=== PATIENT | female | born 1960 | race Caucasian/White ===

== ENCOUNTER 2022-03-30 06:18 | Day surgery (SDC) | payer OTHER, SELFPAY ==
[2022-03-24 10:55] VITALS: BMI 29.7
--- NOTE | 2022-03-29 10:19 | P.CONAN_ITS ---
Documented by User: Kate Adrian NP 03/29/22 10:20 HPI - Anesthesia Eval Consult details Narrative: 61yo F for Colonoscopy [facility] Past Medical History Medical History (Updated 03/24/22 @ 10:53 by Mary Glasgow RN) Anxiety and depression Asthma Elevated cholesterol GERD (gastroesophageal reflux disease) HTN (hypertension) On beta alexey at home Surgical History Surgical History (Updated 03/24/22 @ 10:57 by Mary Glasgow RN) H/O colonoscopy History of endometrial ablation Hx of anterior cruciate ligament surgery Hx of rotator cuff surgery Social History Social History Patient Tobacco Use Status: Former Tobacco user Quit Date: 1984 Use of substances other than those prescribed or required for medical reasons: No Are you DNR?: No Advance Directives: No Advance Directives Information Provided: Yes Meds Allergies Allergy/AdvReac Type Severity Reaction Status Date / Time shellfish derived Allergy Unknown Unknown Verified 03/24/22 10:53 Home Medications Medication Instructions Recorded Confirmed Last Taken Type amlodipine 10 mg tablet 10 mg PO DAILY 03/24/22 03/24/22 03/30/22 History bupropion HCl 150 mg 24 hr tablet, 150 mg PO QAM 03/24/22 03/24/22 03/30/22 Hist ory extended release hydrochlorothiazide 25 mg tablet 25 mg PO DAILY 03/24/22 03/24/22 Unknown History omeprazole 20 mg capsule,delayed 40 mg PO BID 03/24/22 03/24/22 Unknown History release simvastatin 10 mg tablet 10 mg PO BEDTIME 03/24/22 03/24/22 Unknown History Exam Exam Date and Time: March 29, 2022 1019 Height,Weight and Vital Signs: Height 5 ft 3 in Weight 76.204 kg Assessment and Plan Assessment Anesthesia Assessment: Chart Reviewed Documented by User: Jayjay Lauren MD 03/30/22 16:42 [facility] Past Medical History Medical History (Updated 03/24/22 @ 10:53 by Mary Glasgow RN) Anxiety and depression Asthma Elevated cholesterol GERD (gastroesophageal reflux disease) HTN (hypertension) On beta alexey at home Functional capacity: independent ambulation Family History Family history of problems with anesthesia: No Surgical History Surgical History (Updated 03/24/22 @ 10:57 by Mary Glasgow RN) H/O colonoscopy History of endometrial ablation Hx of anterior cruciate ligament surgery Hx of rotator cuff surgery History of Problems with Anesthesia: No Social History Social History Patient Tobacco Use Status: Former Tobacco user Quit Date: 1984 Use of substances other than those prescribed or required for medical reasons: No Are you DNR?: No Advance Directives: No Advance Directives Information Provided: Yes Meds Allergies Allergy/AdvReac Type Severity Reaction Status Date / Time shellfish derived Allergy Unknown Unknown Verified 03/24/22 10:53 Home Medications Medication Instructions Recorded Confirmed Last Taken Type amlodipine 10 mg tablet 10 mg PO DAILY 03/24/22 03/24/22 03/30/22 History bupropion HCl 150 mg 24 hr tablet, 150 mg PO QAM 03/24/22 03/24/22 03/30/22 History extended release hydrochlorothiazide 25 mg tablet 25 mg PO DAILY 03/24/22 03/24/22 Unknown History omeprazole 20 mg capsule,delayed 40 mg PO BID 03/24/22 03/24/22 Unknown History release simvastatin 10 mg tablet 10 mg PO BEDTIME 03/24/22 03/24/22 Unknown History Exam Airway Mallampati Class: III TM Dist: >3cm Neck ROM: Full Loose/Missing/Broken Teeth: Yes (Chipped teeth , poor dentition ) Heart: S1,S2 Lungs: b/l breath sounds Assessment and Plan Assessment Anesthesia Assessment: Anesthesia Plan Discussed Final Anesthetic Review Family History of Problems with Anesthesia: No History of Problems with Anesthesia: No ASA Class: II Final Preanesthetic Review: Meds/Allgs Chart Reviewed, Consent Obtained/Reviewed and Anes Risks/Benef Reviewed Patient Risk: Intermediate Procedure Risk: Intermediate Anesthetic Plan Anesthetic Plan: MAC: Disposition: Standard PACU
[2022-03-30 06:41] VITALS: BP 136/80; PULSE 86; RESP 18; TEMP 36.6; O2SAT 97
[2022-03-30] MEDS: Lactated Ringers 1,000 ML 100 ML IVCONT (06:51)
--- NOTE | 2022-03-30 07:28 | MHC.SHP ---
Pre-Procedural Eval Section A Date of Service: 03/30/22 Section B Chief Complaint: screening,hx of polyps Details of Present Illness: SEE h&p NO CHANGES Relevant Family History (Specify if Yes): No Relevant Social History: None Present Medications: see Short Stay Collaborative assessment Medical History: No relevant PMH History of Previous Operations: No relevant previous surgery Allergies: Allergies Allergy/AdvReac Type Severity Reaction Status Date / Time shellfish derived Allergy Unknown Unknown Verified 03/24/22 10:53 Review of Systems Sugical H&P ROS: Negative: Constitution, Cardiovascular, Respiratory, Neurological, Psychiatric, Hem-Onc, Allergic/Immunologic, Gastrointestinal, Genitourinary, Musculoskeletal, Integumentary, Endocrine and Eyes/Ears/Nose/Throat Exam Surgical H&P Exam: Normal: HEENT, Normal: Heart, Normal: Lungs, Normal: Extremities, Normal: Abdomen, Normal: Skin and Normal: Neurological Plan Diagnosis/Plan: Unchanged I have reviewed the history and physical and performed a pertinent physical examination on my patient. No changes have occurred unless specified.
--- NOTE | 2022-03-30 08:01 | PM.OP ---
Brief Operative Note Date of Service: 03/30/22 Pre-op diagnosis: screening Post-op diagnosis: same (colon polyp) Procedure: colonoscopy Surgeon: Regis Emerson Anesthesia: MAC Was an Information Systems Security Developer used for this Procedure?: No Estimated blood loss (mL): 0 Pathology: other Condition: stable Disposition: PACU
[2022-03-30 08:04] VITALS: BP 106/69; PULSE 83; RESP 16; TEMP 36.6; O2SAT 98
[2022-03-30 08:19] VITALS: BP 120/80; PULSE 87; RESP 18; TEMP 36.6; O2SAT 96
--- NOTE | 2022-03-30 19:37 | OP_ITS ---
SURGEON: Regis Emerson MD INDICATIONS: Colon cancer screening and prior history of colon polyps. PREOPERATIVE DIAGNOSIS: POSTOPERATIVE DIAGNOSIS: PROCEDURE PERFORMED: Colonoscopy to the terminal ileum with snare polypectomy. ESTIMATED BLOOD LOSS: COMPLICATIONS: ANESTHESIA: ASSISTANTS: SPECIMENS: MEDICATIONS: Monitored anesthesia care. DESCRIPTION OF PROCEDURE: A history and physical was performed. The risks and benefits of the procedure were explained to the patient. Informed consent was obtained. The patient was placed in the left lateral decubitus position. A digital rectal exam was performed and was found to be normal. The Olympus pediatric video colonoscope was introduced into the rectum and advanced to the cecum without difficulty. The cecum was identified by transillumination, palpation, and identification of ileocecal valve. Examination was performed. The scope was removed. She tolerated the procedure well and was taken to recovery in stable condition. FINDINGS: The terminal ileum was examined and appeared normal. There was a single diverticulum about 5 cm from the ileocecal valve. The visualized colonic mucosa was normal. The quality of the prep was good. At the hepatic flexure, there was an 8-mm polyp, which was removed with a hot snare and recovered via suction. No other polyps were identified. There was moderate sigmoid diverticulosis with scattered diverticula throughout the remainder of the colon. Retroflexed examination did show some small internal hemorrhoids and some hypertrophic anal papillae. IMPRESSION: Colon polyp. RECOMMENDATIONS: Follow up the biopsy results. MD LINWOOD Bahena/PERLA / [id number]
== END 2022-03-30 09:09 | disposition home or self-care (01) ==
PROVIDERS: PCP Internal Medicine; Visit Provider Internal Medicine Gastroenterology
PROC: 0DJD8ZZ Inspection of Lower Intestinal Tract, Via Natural or Artificial Opening Endoscopic (ICD-10-PCS; CPT 45378; principal; 2022-03-30 07:30)
DX: Z12.11 Encounter for screening for malignant neoplasm of colon (principal); Z86.010 Personal history of colon polyps; D12.3 Benign neoplasm of transverse colon; K57.30 Diverticulosis of large intestine without perforation or abscess without bleeding; K64.8 Other hemorrhoids; K62.89 Other specified diseases of anus and rectum; K21.9 Gastro-esophageal reflux disease without esophagitis; E78.00 Pure hypercholesterolemia, unspecified; J45.909 Unspecified asthma, uncomplicated; F41.8 Other specified anxiety disorders; I10 Essential (primary) hypertension; Z79.899 Other long term (current) drug therapy; Z87.891 Personal history of nicotine dependence
CPT/HCPCS: 45385; 88305

== ENCOUNTER → 2023-03-25 07:41 | Day surgery (SDC) | payer OTHER, SELFPAY ==
--- NOTE | 2023-03-24 11:37 | HO.ANESPROP2 ---
HPI - Anesthesia Eval Consult details Narrative: 62yo F for Colonoscopy PMF Past Medical History Medical History (Updated 03/24/22 @ 10:53 by Mary Glasgow RN) Anxiety and depression Asthma Elevated cholesterol GERD (gastroesophageal reflux disease) HTN (hypertension) On beta alexey at home Family History Family history of problems with anesthesia: No Surgical History Surgical History (Updated 03/25/23 @ 07:55 by Chana Ortega) H/O colonoscopy History of endometrial ablation Hx of anterior cruciate ligament surgery Hx of rotator cuff surgery History of Problems with Anesthesia: No Social History Social History Patient Tobacco Use Status: Former Tobacco user Quit Date: 1978 Tobacco use type: Cigarette Years Smoked: 5 Smoked in Last 30 Days: No Use of substances other than those prescribed or required for medical reasons: No Are you DNR?: No Advance Directives: No Advance Directives Information Provided: Yes Meds Allergies Allergy/AdvReac Type Severity Reaction Status Date / Time shellfish derived Allergy Severe Gastrointestinal Verified 03/25/23 07:56 Upset Home Medications Medication Instructions Recorded Confirmed Last Taken Type amlodipine 10 mg tablet 10 mg PO DAILY 03/24/22 03/25/23 03/25/23 History bupropion HCl 150 mg 24 hr tablet, 150 mg PO QAM 03/24/22 03/25/23 03/30/22 History extended release omeprazole 20 mg capsule,delayed 40 mg PO BID 03/24/22 03/25/23 Unknown History release atorvastatin 20 mg tablet 20 mg PO DAILY 03/25/23 03/25/23 Unknown History Exam Exam Date and Time: March 24, 2023 113 Assessment and Plan Assessment Anesthesia Assessment: Chart Reviewed Final Anesthetic Review Family History of Problems with Anesthesia: No History of Problems with Anesthesia: No
[2023-03-25 07:59] VITALS: BMI 28.2
[2023-03-25 08:14] VITALS: BP 137/86; PULSE 92; RESP 16; TEMP 36.7; O2SAT 96
[2023-03-25] MEDS: Lactated Ringers 1,000 ML 100 ML IVCONT (08:30)
--- NOTE | 2023-03-25 08:30 | PC.NURSE ---
Addendum entered by Chana Ortega 03/25/23 09:24: Reports obtained from [facility]. Dr. Tirado made aware. All reports reviewed by ANNI Mahajan. No active chest pain. Okay to proceed with procedure at this time. Original Note: During preop patient stated I am currently getting worked up for chest pain. I have had a stress test and something with nuclear dye all at [facility]. I have my first cardiology appointment in May. All records from [facility] requested to be faxed over. Dr. Tirado at bedside and made aware. Awaiting reports at this time.
--- NOTE | 2023-03-25 09:21 | P.HPSUR_ITS ---
Pre-Procedural Eval Section A Date of Service: 03/25/23 Section B Chief Complaint: Anemia, unspecified Details of Present Illness: see H&P no changes Relevant Family History (Specify if Yes): No Relevant Social History: None Present Medications: see Short Stay Collaborative assessment Medical History: No relevant PMH History of Previous Operations: No relevant previous surgery Allergies: Allergies Allergy/AdvReac Type Severity Reaction Status Date / Time shellfish derived Allergy Severe Gastrointestinal Verified 03/25/23 07:56 Upset Review of Systems Sugical H&P ROS: Negative: Constitution, Cardiovascular, Respiratory, Neur ological, Psychiatric, Hem-Onc, Allergic/Immunologic, Gastrointestinal, Genitourinary, Musculoskeletal, Integumentary, Endocrine and Eyes/Ears/Nose/Throat Exam Surgical H&P Exam: Normal: HEENT, Normal: Heart, Normal: Lungs, Normal: Extremities, Normal: Abdomen, Normal: Skin and Normal: Neurological Plan Diagnosis/Plan: Unchanged I have reviewed the history and physical and performed a pertinent physical examination on my patient. No changes have occurred unless specified. Time Spent With Patient Time: Total time managing care of this patient today ____ minutes.
[2023-03-25 10:01] VITALS: BP 100/69; PULSE 88; RESP 18; TEMP 36.3; O2SAT 97
--- NOTE | 2023-03-25 10:10 | P.BOP_ITS ---
Brief Operative Note Date of Service: 03/25/23 Pre-op diagnosis: ezekiel Post-op diagnosis: same Surgeon: Regis Emerson Anesthesia: MAC Was an Family Independence Case Manager used for this Procedure?: No Estimated blood loss (mL): 2 Pathology: none sent Condition: stable Disposition: PACU
[2023-03-25 10:16] VITALS: BP 111/69; PULSE 87; RESP 18; TEMP 36.3; O2SAT 96
--- NOTE | 2023-03-25 10:39 | OP_ITS ---
DATE OF SERVICE: 03/25/2023 SURGEON: Regis Emerson MD INDICATIONS: Iron-deficiency anemia. PREOPERATIVE DIAGNOSIS: POSTOPERATIVE DIAGNOSIS: PROCEDURE PERFORMED: Colonoscopy to the terminal ileum. ESTIMATED BLOOD LOSS: COMPLICATIONS: ANESTHESIA: Monitored anesthesia care. ASSISTANTS: SPECIMENS: DESCRIPTION OF PROCEDURE: A history and physical were performed. The risks and benefits of the procedure were explained to the patient. Informed consent was obtained. The patient was placed in the left lateral decubitus position. A digital rectal exam was performed and was found to be normal. The Olympus pediatric video colonoscope was introduced into the rectum and advanced to the cecum. The cecum was identified by transillumination, palpation, and identification of ileocecal valve. Examination was performed, and the scope was removed. She tolerated the procedure well and was transferred to the recovery room in stable condition. FINDINGS: The terminal ileum was examined and appeared normal. The visualized colonic mucosa was normal. The quality of the prep was good. No polyps were identified. No lesions were seen. Retroflexed examination was normal. Internal hemorrhoids were noted to a moderate degree. There was moderate diverticulosis of the sigmoid with scattered diverticulosis throughout the remainder of the colon. IMPRESSION: Normal colonoscopy. RECOMMENDATION: Repeat colonoscopy is recommended in 7 years because of the patient's prior history of colon polyps. MD LINWOOD Bahena/PERLA / [id number]
--- NOTE | 2023-03-25 11:27 | HO.POSTANES ---
Post Anesthesia Evaluation Post Anesthesia Evaluation Date of Service: 03/25/23 Vital Signs: Vital Signs Temp Pulse Resp BP Pulse Ox O2 Del Method 03/25/23 10:16 97.4 F 87 18 111/69 96 Room Air 03/25/23 10:01 97.3 F 88 18 100/69 97 Room Air 03/25/23 08:14 98.0 F 92 16 137/86 96 Room Air Anesthesia: Monitored Mental Status: Awake Pain Control: Satisfactory Nausea/Vomiting: None Hydration: Adequate Anesthesia-Related Issues: No Anes. Related Issues
== END | disposition home or self-care (01) ==
PROVIDERS: PCP Internal Medicine; Visit Provider Internal Medicine Gastroenterology
PROC: 0DJD8ZZ Inspection of Lower Intestinal Tract, Via Natural or Artificial Opening Endoscopic (ICD-10-PCS; CPT 45378; principal; 2023-03-25 09:00)
DX: D50.9 Iron deficiency anemia, unspecified (principal); Z86.010 Personal history of colon polyps; K57.30 Diverticulosis of large intestine without perforation or abscess without bleeding; K64.8 Other hemorrhoids; K21.9 Gastro-esophageal reflux disease without esophagitis; J45.909 Unspecified asthma, uncomplicated; I10 Essential (primary) hypertension; E78.00 Pure hypercholesterolemia, unspecified; Z79.51 Long term (current) use of inhaled steroids; Z79.899 Other long term (current) drug therapy
CPT/HCPCS: 45378

== ENCOUNTER 2025-03-19 06:14 | Day surgery (SDC) | payer OTHER, SELFPAY ==
--- OUTSIDE RECORDS SUMMARY | 2025-02-06 18:02 | XMS_ITS ---
Author Organization [facility] Address [address] [place] [id number] Care Team Providers Care Gold Leaf Printer Name Role Phone Leana SINGH, Kwadwo Primary Care Provider Regis Easley Jr REASON FOR VISIT hiatal hernia, iron def anemia Encounters Encounter Location Date Provider Diagnosis [facility] [address] [place] [phone] 02/05/2025 Regis Emerson Jr Plan Of Treatment Next Appt Details Provider Name:Regis valdez Jr, 03/19/2025 07:30:00 AM, [address] [place] [address], [phone], Progress Notes * ANN RICHTEROB:1960 (64 yo F)Acc No.[id number]:02/05/2025 EGD and COL/MAC Patient:?ELA RICHTER Provider:?Regis Emerson MD :1960???Age:64 Y???Sex:Female D ate:02/05/2025 Address:[address] [place], [place] [id number] Pcp:Kwadwo Dueñas MD Subjective: * Chief Complaints: * ???1. Hiatal hernia, iron de f anemia. * Medical History:? Objective: * Vitals:? Assessment: Plan: * Treatment: * * The named appointment provid er may or may not be the originator of this progress note, and it is not deemed complete until electronically signed by the appointment provider. Sign off status: Pending * Provider:?Regis Emerson MD Date:?0 02/05/2025 Generated for Song reese/Karl/Eladio on:?02/06/2025 06:02 PM EDT
[2025-03-15 13:14] VITALS: BMI 29.6
--- NOTE | 2025-03-18 12:50 | HO.ANESPROP2 ---
HPI - Anesthesia Eval Consult details Narrative: 64 yr old female for upper endoscopy, colonoscopy Cardiac clearance on 03/12/25; cardiac CT 02/2025 neg for CAD, EKG 11/2024 NSR, rate 89, nuclear stress test 2022 normal study Asthma: on inhalers GERD: on PPI PMFSH Past Medical History Medical History Anxiety and depression GERD (gastroesophageal reflux disease) On beta alexey at home Asthma Elevated cholesterol HTN (hypertension) Family History Family history of problems with anesthesia: No Surgical History Surgical History H/O colonoscopy History of endometrial ablation Hx of anterior cruciate ligament surgery Hx of rotator cuff surgery History of Problems with Anesthesia: No Social History Social History Are you a primary cattle care worker to a significant other at home: No Do you presently have visiting nurse or other home services: No Patient Tobacco Use Status: Former Tobacco user Tobacco use type: Cigarette Years Smoked: 5 Use of substances other than those prescribed or required for medical reasons: No Have you been hit, kicked, punched, or otherwise hurt by someone within the past year? If so, by whom?: No Are you DNR?: No Advance Directives: No Advance Directives Information Provided: Yes Patient : No : No Poor oral hygiene: No Meds Allergies Allergy/AdvReac Type Severity Reaction Status Date / Time shellfish derived Allergy Severe Gastrointestinal Verified 03/19/25 06:45 Upset iron Allergy Anaphylaxis Verified 03/19/25 06:46 Home Medications ?Medication ?Instructions ?Recorded ?Confirmed ?Last Taken ?Type amlodipine 10 mg tablet 10 mg PO DAILY 03/24/22 03/19/25 03/19/25 History bupropion HCl 150 mg 24 hr tablet, 150 mg PO QAM 03/24/22 03/15/25 03/30/22 History extended release omeprazole 20 mg capsule,delayed 40 mg PO BID 03/24/22 03/19/25 03/19/25 History release atorvastatin 20 mg tablet 20 mg PO DAILY 03/25/23 03/15/25 Unknown History albuterol sulfate 90 mcg/actuation 2 puff inhalation Q6H PRN 03/15/25 03/15/25 Unknown History aerosol inhaler Shortness Of Breath budesonide-formoterol HFA 160 2 puff inhalation BID 03/15/25 03/15/25 Unknown History mcg-4.5 mcg/actuation aerosol inhaler epinephrine 0.3 mg/0.3 mL 0.3 mg IM ONCE PRN Anaphylaxis 03/15/25 03/15/25 Unknown History injection, auto-injector metoprolol succinate 25 mg 25 mg PO DAILY 03/15/25 03/19/25 03/19/25 History tablet,extended release 24 hr nitroglycerin 0.4 mg sublingual 0.4 mg sublingual ONCE PRN Chest 03/15/25 03/15/25 Unknown History tablet Pain pantoprazole 40 mg tablet,delayed 40 mg PO DAILY 03/15/25 03/15/25 Unknown History release Exam Height,Weight and Vital Signs: Height 5 ft 3.39 in Weight 76.7 kg Pertinent Lab Results Pertinent Lab Results: Done with cardiology 01/2025, CBC, BMP, A1C unremarkable Assessment and Plan Final Anesthetic Review Family History of Problems with Anesthesia: No History of Problems with Anesthesia: No
[2025-03-19 06:56] VITALS: BP 138/89; PULSE 92; RESP 14; TEMP 36.8; O2SAT 96; BMI 28.5
[2025-03-19] MEDS: Lactated Ringers 1,000 ML 100 ML IVCONT (07:00)
--- NOTE | 2025-03-19 07:26 | HO.ANESPROP2 ---
[facility] Past Medical History Medical History Anxiety and depression GERD (gastroesophageal reflux disease) On beta alexey at home Asthma Elevated cholesterol HTN (hypertension) Functional capacity: independent ambulation Patient : No Family History Family history of problems with anesthesia: No Surgical History Surgical History H/O colonoscopy History of endometrial ablation Hx of anterior cruciate ligament surgery Hx of rotator cuff surgery History of Problems with Anesthesia: No Social History Social History Are you a primary healthcare liaison to a significant other at home: No Do you presently have visiting nurse or other home services: No Patient Tobacco Use Status: Former Tobacco user Tobacco use type: Cigarette Years Smoked: 5 Meds Allergies Allergy/AdvReac Type Severity Reaction Status Date / Time shellfish derived Allergy Severe Gastrointestinal Verified 03/19/25 06:45 Upset iron Allergy Anaphylaxis Verified 03/19/25 06:46 Active Medications: Current Medications Albuterol Sulfate (Albuterol Sulfate (0.083%) 2.5 Mg/3 Ml Vial.Neb) 2.5 mg INHALE ONCE PRN PRN Reason: Shortness of Breath/Wheezing Lactated Ringer's (Lr) 1,000 mls @ 100 mls/hr IVCONT .Q10H SONA Last Admin: 03/19/25 07:00 Dose: 100 mls/hr Home Medications ?Medication ?Instructions ?Recorded ?Confirmed ?Last Taken ?Type amlodipine 10 mg tablet 10 mg PO DAILY 03/24/22 03/19/25 03/19/25 History bupropion HCl 150 mg 24 hr tablet, 150 mg PO QAM 03/24/22 03/15/25 03/30/22 History extended release omeprazole 20 mg capsule,delayed 40 mg PO BID 03/24/22 03/19/25 03/19/25 History release atorvastatin 20 mg tablet 20 mg PO DAILY 03/25/23 03/15/25 Unknown History albuterol sulfate 90 mcg/actuation 2 puff inhalation Q6H PRN 03/15/25 03/15/25 Unknown History aerosol inhaler Shortness Of Breath budesonide-formoterol HFA 160 2 puff inhalation BID 03/15/25 03/15/25 Unknown History mcg-4.5 mcg/actuation aerosol inhaler epinephrine 0.3 mg/0.3 mL 0.3 mg IM ONCE PRN Anaphylaxis 03/15/25 03/15/25 Unknown History injection, auto-injector metoprolol succinate 25 mg 25 mg PO DAILY 03/15/25 03/19/25 03/19/25 History tablet,extended release 24 hr nitroglycerin 0.4 mg sublingual 0.4 mg sublingual ONCE PRN Chest 03/15/25 03/15/25 Unknown History tablet Pain pantoprazole 40 mg tablet,delayed 40 mg PO DAILY 03/15/25 03/15/25 Unknown History release Exam Height,Weight and Vital Signs: Height 5 ft 3.39 in Weight 74 kg Last Vital Signs Temp 98.2 F 03/19/25 06:56 Pulse 92 03/19/25 06:56 Resp 14 03/19/25 06:56 BP 138/89 03/19/25 06:56 Pulse Ox 96 03/19/25 06:56 O2 Del Method Room Air 03/19/25 06:56 Airway Mallampati Class: II TM Dist: >3cm Neck ROM: Full Heart: RRR Lungs: CTA Assessment and Plan Assessment Anesthesia Assessment: Anesthesia Plan Discussed Final Anesthetic Review Family History of Problems with Anesthesia: No History of Problems with Anesthesia: No NPO: Yes ASA Class: II Final Preanesthetic Review: Meds/Allgs Chart Reviewed, Consent Obtained/Reviewed and Anes Risks/Benef Reviewed Patient Risk: Low Anesthetic Plan Anesthetic Plan: GA Disposition: Standard PACU
--- NOTE | 2025-03-19 07:37 | MHC.SHP ---
Pre-Procedural Eval Section A - 24 Hr Update-Section A only Date of Service: 03/19/25 The patient is an INPATIENT: No The patient has been examined within 24 hours of the surgical procedure. The History & Physical has been completed within 30 days and I have reviewed it.: No Section B - Complete if H&P > 30 days Chief Complaint: Diaphragmatic hernia without obstruction or gangre Details of Present Illness: see H&P no vchages Relevant Family History (Specify if Yes): No Relevant Social History: None Present Medications: None Medical History: No relevant PMH History of Previous Operations: No relevant previous surgery Allergies: Allergies Allergy/AdvReac Type Severity Reaction Status Date / Time shellfish derived Allergy Severe Gastrointestinal Verified 03/19/25 06:45 Upset iron Allergy Anaphylaxis Verified 03/19/25 06:46 Review of Systems Sugical H&P ROS: Negative: Constitution, Cardiovascular, Respiratory, Neurological, Psychiatric, Hem-Onc, Allergic/Immunologic, Gastrointestinal, Genitourinary, Musculoskeletal, Integumentary, Endocrine and Eyes/Ears/Nose/Throat Exam Surgical H&P Exam: Normal: HEENT, Normal: Heart, Normal: Lungs, Normal: Extremities, Normal: Abdomen, Normal: Skin and Normal: Neurological Plan Diagnosis/Plan: Unchanged I have reviewed the history and physical and performed a pertinent physical examination on my patient. No changes have occurred unless specified. Time Spent With Patient Time: Total time managing care of this patient today ____ minutes.
[2025-03-19 08:39] VITALS: BP 119/78; PULSE 86; RESP 16; TEMP 36.2; O2SAT 97
[2025-03-19 08:50] VITALS: BP 112/79; PULSE 85; RESP 18; O2SAT 98
--- NOTE | 2025-03-19 08:50 | ECG_ITS ---
Test Reason : CHEST PAIN Blood Pressure : */* mmHG Vent. Rate : 78 BPM Atrial Rate : 78 BPM P-R Int : 154 ms QRS Dur : 68 ms QT Int : 406 ms P-R-T Axes : -26 -6 13 degrees QTcB Int : 462 ms Normal sinus rhythm Low voltage QRS Borderline ECG No previous ECGs available Referred By: Regis Emerson Electronically Signed By: Carlito Rangel
[2025-03-19 08:54] VITALS: BP 121/83; PULSE 75; RESP 18; O2SAT 98
[2025-03-19 09:07] VITALS: BP 125/84; PULSE 80; RESP 20; TEMP 36.5; O2SAT 98
--- NOTE | 2025-03-19 09:27 | OP_ITS ---
DATE OF SERVICE: 03/19/2025 SURGEON: Regis Emerson MD INDICATIONS: Iron-deficiency anemia and hiatal hernia. PREOPERATIVE DIAGNOSIS: POSTOPERATIVE DIAGNOSIS: PROCEDURE PERFORMED: ESTIMATED BLOOD LOSS: COMPLICATIONS: ANESTHESIA: ASSISTANTS: SPECIMENS: PROCEDURES: Upper endoscopy with biopsy, colonoscopy to the terminal ileum. MEDICATIONS: Monitored anesthesia care. DESCRIPTION OF PROCEDURE: A history and physical was performed. The risks and benefits of the procedure were explained to the patient. Informed consent was obtained. The patient was placed in the left lateral decubitus position. The Olympus video gastroscope was introduced into the esophagus, stomach, and duodenum. Examination was performed. The scope was removed. She tolerated the procedure well and was repositioned for colonoscopy. A digital rectal exam was performed and was found to be normal. The Olympus pediatric video colonoscope was introduced into the rectum and advanced to the cecum. The cecum was identified by transillumination, palpation, and identification of the ileocecal valve. Examination was performed and the scope was removed. She tolerated both procedures well. FINDINGS: Upper endoscopy, Esophagus: The esophagus was normal. There was an irregular EG junction which was biopsied. There was a large hiatal hernia measuring approximately 8 to 10 cm. Stomach: The stomach showed no evidence of masses, ulcers, or polyps. Antral biopsies were obtained. Duodenum: The bulb and 2nd portion were normal. Colonoscopy: The terminal ileum was examined and appeared normal. Visualized colonic mucosa was normal. The quality of prep was good. No polyps were identified. There was moderate sigmoid diverticulosis. Retroflexed examination showed small internal hemorrhoids. IMPRESSION: 1. Hiatal hernia. 2. Gastroesophageal reflux disease. RECOMMENDATION: Follow up the biopsy results. MD LINWOOD Bahena/PERLA / [id number]
--- NOTE | 2025-03-19 09:31 | PM.OP ---
Brief Operative Note Date of Service: 03/19/25 Pre-op diagnosis: hiatal hernia screening Post-op diagnosis: same Procedure: egd colon Surgeon: Regis Emerson MD Anesthesia: MAC Was an Cutting Machine Offbearer used for this Procedure?: No Estimated blood loss (mL): 5 Pathology: none sent Condition: stable Disposition: PACU
--- NOTE | 2025-03-19 12:49 | HO.POSTANES ---
Post Anesthesia Evaluation Post Anesthesia Evaluation Date of Service: 03/19/25 Vital Signs: Vital Signs Temp Pulse Resp BP Pulse Ox O2 Del Method 03/19/25 09:07 97.7 F 80 20 125/84 98 Room Air 03/19/25 08:54 75 18 121/83 98 Room Air 03/19/25 08:50 85 18 112/79 98 Room Air 03/19/25 08:39 97.2 F 86 16 119/78 97 Room Air 03/19/25 06:56 98.2 F 92 14 138/89 96 Room Air Anesthesia: Monitored Mental Status: Awake Pain Control: Satisfactory Nausea/Vomiting: None Hydration: Adequate Anesthesia-Related Issues: No Anes. Related Issues
== END 2025-03-19 09:48 | disposition home or self-care (01) ==
PROVIDERS: PCP Internal Medicine; Visit Provider Internal Medicine Gastroenterology
PROC: (CPT 45378; principal; 2025-03-19 07:30)
DX: D50.9 Iron deficiency anemia, unspecified (principal); Z86.0101 Personal history of adenomatous and serrated colon polyps; Z83.719 Family history of colon polyps, unspecified; K57.30 Diverticulosis of large intestine without perforation or abscess without bleeding; K64.8 Other hemorrhoids; K44.9 Diaphragmatic hernia without obstruction or gangrene; K21.9 Gastro-esophageal reflux disease without esophagitis; K22.89 Other specified disease of esophagus; K29.70 Gastritis, unspecified, without bleeding; B96.81 Helicobacter pylori [H. pylori] as the cause of diseases classified elsewhere; I10 Essential (primary) hypertension; E78.00 Pure hypercholesterolemia, unspecified; J45.909 Unspecified asthma, uncomplicated; F41.9 Anxiety disorder, unspecified; Z79.899 Other long term (current) drug therapy; Z79.51 Long term (current) use of inhaled steroids; Z98.890 Other specified postprocedural states
CPT/HCPCS: 45378; 43239; 88305; 88313; 88342; 93005; J2704

== ENCOUNTER → 2025-03-19 08:50 | Outpatient (BNV) | payer OTHER, SELFPAY | PROVIDERS: PCP Internal Medicine; Visit Provider Internal Medicine Cardiovascular Disease | DX: R07.9 Chest pain, unspecified (principal) | CPT/HCPCS: 93010 ==